=== PATIENT | female | born 1990 | race African-American/Black ===

== ENCOUNTER 2016-11-28 09:09 | Outpatient (CLI) | payer MEDICAID ==
[~2016-11-28 09:09] MED LIST: ACETAMINOPHEN 325 MG TABLET PO PRN; DIPHENHYDRAMINE HCL 50 MG/ML VIAL IV PRN; FERRIC CARBOXYMALTOSE 750 MG in NORMAL SALINE 250 ML IV PRN; NORMAL SALINE 250 ML IV PRN
[2016-11-28 10:36] VITALS: BP 127/70
== END 2016-11-28 10:15 | disposition home or self-care (01) ==
LOC: II 09:09 → 5TH 09:11 → II 10:00 → 5TH 10:00 → II 10:15
PROVIDERS: ATTEND Specialist
PROC: 3E033GC Introduction of Other Therapeutic Substance into Peripheral Vein, Percutaneous Approach (ICD-10-PCS; principal; 2016-11-28)
DX: D50.0 Iron deficiency anemia secondary to blood loss (chronic) (principal); K90.9 Intestinal malabsorption, unspecified
CPT/HCPCS: 96374; 96375; J3490; J1200; J7050; J1439; 96367

== ENCOUNTER 2016-12-09 10:07 | Outpatient (CLI) | payer MEDICAID ==
[2016-12-09 10:59] VITALS: BP 142/86
== END 2016-12-09 12:01 | disposition home or self-care (01) ==
LOC: II 10:07 → 5TH 10:10 → II 12:01
PROVIDERS: ATTEND Specialist
PROC: 3E033GC Introduction of Other Therapeutic Substance into Peripheral Vein, Percutaneous Approach (ICD-10-PCS; principal; 2016-12-09)
DX: D50.0 Iron deficiency anemia secondary to blood loss (chronic) (principal); K90.9 Intestinal malabsorption, unspecified
CPT/HCPCS: 96365; 96375; J3490; J1200; J7050; J1439

== ENCOUNTER 2017-04-18 21:43 | Emergency (ER) | payer SELFPAY ==
[2017-04-18 22:01] VITALS: BP 147/92
[2017-04-18] MEDS ORDERED: OXYMETAZOLINE HCL 0.05% NASAL SPRAY 15 ML BOTTLE NASL ONE (22:23)
--- NOTE | 2017-04-18 22:47 | ER Document Report ---
ED General - General Chief Complaint: Nose Bleed Stated Complaint: NOSE BLEEDS,CLOTS Time Seen by Provider: 04/18/17 22:23 Notes: Patient is a 26-year-old female without past medical history presents with intermittent nosebleed from the left nostril for the past 1 week. States that each day for small amount of time generally several minutes she has spotting from the left nostril which is able to be controlled with direct pressure. She states nothing seems to prompt his episodes of nosebleed. No history of similar symptoms in the past. She denies picking at the nose. She has not done that and try to treat her symptoms. She has not seen a primary care doctor regarding today's concerns. She denies any use of anticoagulation, over- the-counter NSAIDs or aspirin. TRAVEL OUTSIDE OF THE [place] IN LAST 30 DAYS: No - Related Data Allergies/Adverse Reactions: No Known Allergies Allergy (Verified 09/28/16 00:03) Past Medical History - General Information source: Patient - Social History Smoking Status: Never Smoker Chew tobacco use (# tins/day): No Frequency of alcohol use: None Drug Abuse: None Lives with: Spouse/Significant other Family History: Reviewed & Not Pertinent Renal/ Medical History: Denies: Hx Peritoneal Dialysis Surgical Hx: Negative - Immunizations Hx Diphtheria, Pertussis, Tetanus Vaccination: No Review of Systems - Review of Systems Notes: Constitutional: Negative for fever. HENT: Negative for sore throat. Eyes: Negative for visual changes. Cardiovascular: Negative for chest pain. Respiratory: Negative for shortness of breath. Gastrointestinal: Negative for abdominal pain, vomiting or diarrhea. Genitourinary: Negative for dysuria. Musculoskeletal: Negative for back pain. Skin: Negative for rash. Neurological: Negative for headaches, weakness or numbness. 10 point ROS negative except as marked above and in HPI. Physical Exam - Vital signs Vitals: Temp Pulse Resp BP Pulse Ox 98.6 F 90 16 147/92 H 99 04/18/17 21:58 04/18/17 21:58 04/18/17 21:58 04/18/17 21:58 04/18/17 21:58 Interpretation: Hypertensive Notes: PHYSICAL EXAMINATION: GENERAL: Well-appearing, well-nourished and in no acute distress. HEAD: Atraumatic, normocephalic. EYES: sclera anicteric, conjunctiva are normal. ENT: Moist mucous membranes. Mild excoriations to the septum on the left without any active bleeding NECK: Normal range of motion LUNGS: Normal work of breathing HEART: 2+ radial pulses bilaterally EXTREMITIES: no pitting or edema. No cyanosis. NEUROLOGICAL: No focal neurological deficits. Moves all extremities spontaneously and on command. PSYCH: Normal mood, normal affect. SKIN: Warm, Dry, normal turgor, no rashes or lesions noted. Course - Re-evaluation Re-evalutation: 04/18/17 22:46 Patient presents with intermittent nosebleeds from the left nostril for the past 1 week. No active bleeding at time of arrival. Vitals otherwise within normal limits. Patient is in no distress. There are several areas of excoriations along the left septum without active bleeding. I have recommended to the patient that she begin application of Vaseline or similar moisturizer to the septum twice daily and have given oxymetazoline for her to use should bleeding recur. At this time will discharge with return precautions and follow- up recommendations. Verbal discharge instructions given a the bedside and opportunity for questions given. Medication warnings reviewed. Patient is in agreement with this plan and has verbalized understanding of return precautions and the need for primary care follow-up in the next 24-72 hours. - Vital Signs Vital signs: Temp Pulse Resp BP Pulse Ox 98.6 F 90 16 147/92 H 99 04/18/17 21:58 04/18/17 21:58 04/18/17 21:58 04/18/17 21:58 04/18/17 21:58 Discharge - Discharge Clinical Impression: Recurrent epistaxis Condition: Good Disposition: HOME, SELF-CARE Additional Instructions: You were seen today for a nosebleed. If this restarts please apply direct pressure to the area for 15 minutes without releasing pressure. You can use 4- 5 sprays the Afrin (oxymetazoline) spray that was given to you here in the emergency room into the affected side prior to applying the pressure. You need to apply vasaline or a similar product along the inside of the side of the nose that is bleeding twice daily to help heal the inside of your nose. Please return to emergency department if these measures do not control the bleeding. Please also return if you pass out, have significant pain of the nose or face, or any other symptoms that are concerning to you. Your primary care doctor regarding today's visit.it. Referrals: DESTINY TERAN MD [Primary Care Provider] - Follow up as needed
== END 2017-04-18 22:52 | disposition home or self-care (01) ==
LOC: ER 21:43
DX: R04.0 Epistaxis (principal)
CPT/HCPCS: 99283; J3490

== ENCOUNTER → 2019-06-14 | Outpatient (CLI) | payer MEDICAID ==
[2019-06-14 11:33] LABS: BACTERIA (WET MOUNT) 4+ BACTERIA SEEN; EPITHELIALS (WET MOUNT) 4+ EPITHELIALS SEEN; RBCS (WET MOUNT) NO RBCS SEEN; T.VAGINALIS (WET MOUNT) NO TRICHOMONAS SEEN; WBCS (WET MOUNT) 3+ WBCS SEEN; YEAST (WET MOUNT) NO YEAST SEEN
[2019-06-14 13:06] LABS: CHLAM PCR NOT DETECTED (NOT DETECT)
== END ==
LOC: LAB 11:25
PROVIDERS: ATTEND Nurse Practitioner Family
DX: N89.8 Other specified noninflammatory disorders of vagina (principal); R30.0 Dysuria; R82.71 Bacteriuria
CPT/HCPCS: 87086; 87088; 87210; 87491; 87591

== ENCOUNTER → 2019-09-16 | Outpatient (CLI) | payer MEDICAID ==
--- NOTE | 2019-09-16 14:21 | RADIOLOGY REPORT (SQ) ---
EXAM DESCRIPTION: U/S THYROID/SFT TISS HD NECK COMPLETED DATE/TIME: 09/16/2019 9:07 am REASON FOR STUDY: THYROID ENLARGED E04.9 NONTOXIC GOITER, UNSPECIFIED COMPARISON: None. TECHNIQUE: Dynamic and static mcqueen-scale images acquired of the thyroid gland. Selected additional c olor/power Doppler images recorded. All images stored to PACS. LIMITATIONS: None. FINDINGS: RIGHT LOBE: The right lobe of the thyroid gland measures 4.6 x 1.7 x 2 cm and its echotext ure is heterogeneous. There is no discrete solid or cystic mass. LEFT LOBE: The left lobe of thyroid gland measures 4.1 x 1.8 x 2 cm and its echotexture is heterogene ous. There is no discrete solid or cystic mass. ISTHMUS: The isthmus of the thyroid gland measures 5 mm in AP diameter and its echotexture is heterog eneous. There is no discrete solid or cystic mass. OTHER: No other finding. IMPRESSION: Heterogeneous thyroid gland without a discrete nodular mass. The calculated volume of t he gland is within the normal limits of normal for an adult female (< than 18 cm^3). TECHNICAL DOCUMENTATION: JOB ID: [id number] [employer]- All Rights Reserved Reading location - IP/workstation name: [email or web address]
== END ==
LOC: RAD 08:51
PROVIDERS: ATTEND Nurse Practitioner Family
DX: E04.9 Nontoxic goiter, unspecified (principal)
CPT/HCPCS: 76536

== ENCOUNTER 2020-02-18 19:31 | Emergency (ER) | payer BC, MEDICAID ==
--- NOTE | 2020-02-18 19:47 | ER Document Report ---
ED Medical Screen (RME) - General Stated Complaint: CHEST PAIN,JAW TIGHTNESS AND LUMP IN THROAT Primary Care Provider: MOODY PLATA NP [Primary Care Provider] - Follow up as needed Notes: Patient is a 29-year-old -Swedish female with no significant past medi milo history who presents to the emergency department with a chief complaint of chest pain that began yesterday. She states it is a fairly constant pain in the right center chest. She reports that it radiates to the right jaw and neck. States it is pressure-like. No specific provocative or palliative factors. She denies any shortness of breath, cough, fever, injury, history of DVT or PE, recent travel or known sick contacts. I have treated and performed a rapid initial assessment of this patient. A comprehensive ED assessment and evaluation of the patient, analysis of test results and completion of medical decision making process will be conducted by additional ED providers. PHYSICAL EXAMINATION: GENERAL: Well-appearing, well-nourished and in no acute distress. A&Ox4. Answers questions appropriately. TRAVEL OUTSIDE OF THE [place] IN LAST 30 DAYS: No - Related Data Allergies/Adverse Reactions: No Known Allergies Allergy (Verified 09/28/16 00:03) Past Medical History Renal/ Medical History: Denies: Hx Peritoneal Dialysis - Immunizations Hx Diphtheria, Pertussis, Tetanus Vaccination: No Physical Exam - Vital signs Vitals: Temp Pulse Resp BP Pulse Ox 97.8 F 87 16 145/83 H 97 02/18/20 19:41 02/18/20 19:41 02/18/20 19:41 02/18/20 19:41 02/18/20 19:41 Course - Vital Signs Vital signs: Temp Pulse Resp BP Pulse Ox 97.8 F 87 16 145/83 H 97 02/18/20 19:41 02/18/20 19:41 02/18/20 19:41 02/18/20 19:41 02/18/20 19:41 Doctor's Discharge - Discharge Referrals: MOODY PLATA NP [Primary Care Provider] - Follow up as needed
--- NOTE | 2020-02-18 20:28 | RADIOLOGY REPORT (SQ) ---
CLINICAL INDICATION: cp. TECHNIQUE: PA and lateral views were obtained of the chest COMPARISON: None. FINDINGS: The cardiomediastinal silhouette is normal. The lungs are grossly clear. No evidence of effusion or pneumothorax. Visualized bones are unremarkable. . IMPRESSION: No evidence of active intrathoracic disease .
[2020-02-18 20:45] LABS: INTERNATIONAL RATION (INR) 1.06; PARTIAL THROMBOPLASTIN TIME 24.2 SEC (23.5-35.8); PROTHROMBIN TIME 13.8 SEC (11.4-15.4)
[2020-02-18 20:47] LABS: ABSOLUTE BASOPHILS # (AUTO) 0.1 10^3/uL (0.0-0.2); ABSOLUTE EOSINOPHILS # (AUTO) 0.5 10^3/uL (0.0-0.6); ABSOLUTE LYMPHOCYTES (AUTO) 4.7 10^3/uL (0.5-4.7); ABSOLUTE MONOCYTES (AUTO) 0.8 10^3/uL (0.1-1.4); ABSOLUTE NEUT (AUTO) 6.8 10^3/uL (1.7-8.2); BASOPHILS % (AUTO) 0.5 % (0-2); EOSINOPHILS % (AUTO) 3.6 % (0-6); HEMATOCRIT 38.3 % (36.0-47.0); HEMOGLOBIN 12.6 g/dL (12.0-15.5); LYMPHOCYTES % (AUTO) 36.5 % (13-45); MEAN CORPUSCULAR HEMOGLOBIN 27.8 pg (27.0-33.4); MEAN CORPUSCULAR HGB CONC 32.9 g/dL (32.0-36.0); MEAN CORPUSCULAR VOLUME 85 fl (80-97); RED BLOOD COUNT 4.53 10^6/uL (3.72-5.28); RED CELL DISTRIBUTION WIDTH 14.9 % (11.5-14.0); SEGMENTED NEUTROPHILS % (AUTO) 53.4 % (42-78); TOTAL CELLS COUNTED % (AUTO) 100 %; WHITE BLOOD COUNT 12.7 10^3/uL (4.0-10.5)
[2020-02-18 21:02] LABS: PLATELET COUNT 355 10^3/uL (150-450)
--- NOTE | 2020-02-18 21:18 | EKG REPORT ---
SEVERITY:- NORMAL ECG - SINUS RHYTHM : Confirmed by: Fabien Escobar MD 18-Feb-2020 21:17:33
[2020-02-18 21:40] LABS: ALBUMIN 3.9 g/dL (3.5-5.0); ALKALINE PHOSPHATASE 115 U/L (38-126); ANION GAP 8 (5-19); ASPARTATE AMINO TRANSFERASE 33 U/L (14-36); BILIRUBIN,DIRECT 0.3 mg/dL (0.0-0.4); BILIRUBIN,TOTAL 0.6 mg/dL (0.2-1.3); BLOOD UREA NITROGEN 11 mg/dL (7-20); CALCIUM 8.7 mg/dL (8.4-10.2); CARBON DIOXIDE 23 mmol/L (22-30); CHLORIDE 104 mmol/L (98-107); GLUCOSE 90 mg/dL (75-110); POTASSIUM 4.1 mmol/L (3.6-5.0); TOTAL PROTEIN 8.1 g/dL (6.3-8.2)
--- NOTE | 2020-02-18 22:25 | ER Document Report ---
ED General - General Chief Complaint: Chest Pain Stated Complaint: CHEST PAIN,JAW TIGHTNESS AND LUMP IN THROAT Time Seen by Provider: 02/18/20 21:21 Primary Care Provider: MOODY PLATA NP [Primary Care Provider] - Follow up as needed TRAVEL OUTSIDE OF THE [place] IN LAST 30 DAYS: No - HPI Notes: Patient is a 29-year-old female who presents emergency department for evaluation of chest pain. It started on for a few hours, then she got it again this evening. She states the first time she was at rest, the second time she was outside playing with her children. She states that neither were during strenuous activities. She described a burning and sharp pain in the center of her chest. She states she had intermittent pain in her right neck, as well as a funny tingling sensation in her right jaw. She denied any associated nausea, diaphoresis, shortness of breath, or near syncope. - Related Data Allergies/Adverse Reactions: No Known Allergies Allergy (Verified 09/28/16 00:03) Past Medical History - General Information source: Patient - Social History Smoking Status: Never Smoker Family History: Reviewed & Not Pertinent Patient has suicidal ideation: No Patient has homicidal ideation: No Renal/ Medical History: Denies: Hx Peritoneal Dialysis Past Surgical History: Reports: Hx Section - Immunizations Hx Diphtheria, Pertussis, Tetanus Vaccination: No Review of Systems - Review of Systems Cardiovascular: See HPI Musculoskeletal: See HPI -: Yes All other systems reviewed and negative Physical Exam - Vital signs Vitals: Temp Pulse Resp BP Pulse Ox 97.8 F 87 16 145/83 H 97 02/18/20 19:41 02/18/20 19:41 02/18/20 19:41 02/18/20 19:41 02/18/20 19:41 - Notes Notes: Vital signs reviewed, please refer to chart. Head is normocephalic, atraumatic. Pupils equal round, reactive to light. Neck is supple without meningismus. Heart is regular rate and rhythm. Lungs are clear to auscultation bilaterally. Abdomen is soft, nontender, normoactive bowel sounds throughout. Extremities without cyanosis, clubbing. Posterior calves are nontender. Peripheral pulses are equal. Skin is warm and dry. Patient is awake, alert, neurological exam is nonfocal. Course - Re-evaluation Re-evalutation: 02/18/20 22:22 Patient presents emergency department for evaluation. She had labs ordered, EKG performed. Laboratory investigations failed to reveal any significant abnormality. EKG is unremarkable. Patient is obese, but has no other significant risk factors for coronary artery disease. We talked at length about the differential diagnosis for chest pain, and I believe we have ruled out any more serious process at this time based on her current presentation. She did talk about the fact that her blood pressure has been mildly elevated at another appointment as well as here today. We talked at length about blood pressure management, lifestyle changes, and the risks associated with prolonged high blood pressure. She voiced understanding to this and will follow-up regarding this issue with her primary care provider next week. Otherwise she is to return to the ER with worsening or new concerning symptoms of any sort. - Vital Signs Vital signs: Temp Pulse Resp BP Pulse Ox 98.3 F 87 15 122/79 99 02/18/20 23:02 02/18/20 19:41 02/18/20 22:02 02/18/20 22:02 02/18/20 22:02 - Laboratory Result Diagrams: 02/18/20 20:22 02/18/20 21:00 Laboratory results interpreted by me: 02/18/20 02/18/20 20:22 21:00 WBC 12.7 H RDW 14.9 H Sodium 135.3 L - Diagnostic Test Radiology reviewed: Reports reviewed Radiology results interpreted by me: 02/18/20 22:24 Chest X-Ray 02/18/20 19:46 IMPRESSION: No evidence of active intrathoracic disease . - EKG Interpretation by Me Additional EKG results interpreted by me: 02/18/20 22:24 Sinus mechanism with a rate of 92 bpm. Normal axis and intervals. No acute ST changes concerning for ischemia or infarction. Discharge - Discharge Clinical Impression: Chest pain Qualifiers: Chest pain type: unspecified Qualified Code(s): R07.9 - Chest pain, unspecified Condition: Stable Disposition: HOME, SELF-CARE Instructions: Chest Pain of Unclear Cause ([facility]) Additional Instructions: No clear cause was found for your chest pain today. Your blood work, EKG, chest x-ray were unremarkable. Please follow-up with your primary care provider. Please keep an eye on your blood pressure as discussed as well. If you develop increased pain, or worsening or new concerning symptoms of any sort, please return immediately to the emergency department for evaluation. Referrals: MOODY PLATA NP [Primary Care Provider] - Follow up as needed
[2020-02-18 22:39] VITALS: BP 122/79
== END 2020-02-18 23:02 | disposition home or self-care (01) ==
LOC: ER 19:31
DX: R07.9 Chest pain, unspecified (principal); R68.84 Jaw pain
CPT/HCPCS: 36415; 71046; 80053; 84484; 84703; 85025; 85610; 85730; 93005; 93010; 99285

== ENCOUNTER 2020-07-08 19:09 | Emergency (ER) | payer BC, MEDICAID ==
--- NOTE | 2020-07-08 21:45 | ER Document Report ---
ED Medical Screen (RME) - General Chief Complaint: Back Pain Stated Complaint: BACK PAIN Time Seen by Provider: 07/08/20 21:40 Primary Care Provider: MOODY PLATA NP [Primary Care Provider] - Follow up as needed Mode of Arrival: Ambulatory Information source: Patient Notes: 30-year-old female presents to ED for complaint of pain in her lower back that goes to the top of her back for the last 2 weeks. She states when she lays down it feels like there is a ball that goes from her lower back up to her top of her back to her right shoulder. She denies any recent injuries. States she is always had random back pains because she is worked on her feet. This menstrual cycle June 18. She denies smoking drinking using any illicit drugs. She does not take any regular medicines and she has no prior medical history. She states she has had a . Is alert and oriented respirations regular nonlabored answering all questions appropriately. We will get urine test for and if that is negative we will get a back x-ray and she will be seen by another doctor. I have greeted and performed a rapid initial assessment of this patient. A comprehensive ED assessment and evaluation of the patient, analysis of test results and completion of medical decision making process will be conducted by an additional ED providers. TRAVEL OUTSIDE OF THE [place] IN LAST 30 DAYS: No - Related Data Allergies/Adverse Reactions: No Known Allergies Allergy (Verified 09/28/16 00:03) Past Medical History Renal/ Medical History: Denies: Hx Peritoneal Dialysis Past Surgical History: Reports: Hx Section - Immunizations Hx Diphtheria, Pertussis, Tetanus Vaccination: No Physical Exam - Vital signs Vitals: Temp Pulse Resp BP Pulse Ox 98.3 F 91 18 146/87 H 100 07/08/20 20:14 07/08/20 20:14 07/08/20 20:14 07/08/20 20:14 07/08/20 20:14 Course - Vital Signs Vital signs: Temp Pulse Resp BP Pulse Ox 98.3 F 91 18 146/87 H 100 07/08/20 20:14 07/08/20 20:14 07/08/20 20:14 07/08/20 20:14 07/08/20 20:14 Doctor's Discharge - Discharge Referrals: WITTLER,MOODY, RISK CONTROL OFFICER [Primary Care Provider] - Follow up as needed
--- NOTE | 2020-07-08 23:07 | RADIOLOGY REPORT (SQ) ---
INDICATION: Low back pain wait for test. TECHNIQUE: 5 view(s) of the lumbar spine. Both obliques COMPARISON: None FINDINGS: No evidence of acute displaced fracture. Alignment is anatomic. The facets and intervertebral joints are within normal limits for age. Vertebral body heights are well-maintained. Surrounding soft tissues are unremarkable. IMPRESSION: No evidence of acute displaced fracture of the lumbar spine.
--- NOTE | 2020-07-08 23:35 | ER Document Report ---
ED Neck/Back Problem - General Chief Complaint: Back Pain Stated Complaint: BACK PAIN Time Seen by Provider: 07/08/20 21:40 Primary Care Provider: MOODY PLATA NP [Primary Care Provider] - Follow up as needed Mode of Arrival: Ambulatory Notes: CHIEF COMPLAINT: Right trapezius discomfort HPI: 30-year-old obese female presenting for right trapezius discomfort intermittent over the last week. Patient recently started working out where she is trying to do more stretching and feels like something may have pulled in the back. Denies shortness of breath or chest pain. Denies . Is not on control. Has taken no medications for her symptoms. Discomfort specifically worsens with certain stretches or movements of the right shoulder or upper arm. Patient states occasionally she will feel like a spasm builds in the lower back and then radiates up to the right shoulder region. ROS: See HPI - all other systems were reviewed and are otherwise negative Constitutional: no fever Cardiovascular: no chest pain Resp: no SOB, no cough GI: no vomiting, no diarrhea, no abdominal pain : no dysuria Integumentary: no rash Allergy: no hives Musculoskeletal: Positive back pain Neurological: no numbness/tingling, no weakness MEDICATIONS: I agree with the patient medications as charted by the RN. ALLERGIES: I agree with the allergies as charted by the RN. PAST MEDICAL HISTORY/PAST SURGICAL HISTORY: Reviewed and agree as charted by RN. SOCIAL HISTORY: Reviewed and agree as charted by RN. FAMILY HISTORY: No significant familial comorbid conditions directly related to patient complaint EXAM: Reviewed vital signs as charted by RN. CONSTITUTIONAL: Alert and oriented and responds appropriately to questions. Well-appearing; well-nourished HEAD: Normocephalic; atraumatic EYES: Conjunctivae clear, sclerae non-icteric ENT: normal nose; no rhinorrhea; moist mucous membranes NECK: Supple without meningismus; non-tender; no cervical lymphadenopathy, no masses CARD: RRR; no murmurs, no clicks, no rubs, no gallops; symmetric distal pulses RESP: Normal chest excursion without splinting or tachypnea; breath sounds clear and equal bilaterally; no wheezes, no rhonchi, no rales, pulse oximetry 99% on room air not hypoxic ABD/GI: Normal bowel sounds; non-distended; soft, non-tender, no rebound, no guarding; no palpable organomegaly or masses. BACK: The back appears normal and is non-tender to palpation over the thoracic and lumbar spine, there is no CVA tenderness. There is tenderness on palpation of the right trapezius region EXT: Normal ROM in all joints; non-tender to palpation; no cyanosis, no effusions, no edema SKIN: Normal color for age and race; warm; dry; good turgor; no acute lesions noted NEURO: Moves all extremities equally; Motor and sensory function intact PSYCH: The patient's mood and manner are appropriate. Grooming and personal hygiene are appropriate. MDM: 30-year-old female presenting with what is likely a trapezius strain. Ini tial imaging studies by triage process did not show acute findings in the lumbar spine. Patient's pain really appears to be in the right trapezius region. Will place her on an anti-inflammatory and a muscle relaxer refer to orthopedics follow-up. Low suspicion for pulmonary embolus as she is not and not on control. Not tachycardic or tachypneic. PERC negative TRAVEL OUTSIDE OF THE [place] IN LAST 30 DAYS: No - Related Data Allergies/Adverse Reactions: No Known Allergies Allergy (Verified 09/28/16 00:03) Past Medical History - General Information source: Patient - Social History Smoking Status: Never Smoker Chew tobacco use (# tins/day): No Frequency of alcohol use: None Drug Abuse: None Family History: Reviewed & Not Pertinent Patient has homicidal ideation: No Renal/ Medical History: Denies: Hx Peritoneal Dialysis Past Surgical History: Reports: Hx Section - Immunizations Hx Diphtheria, Pertussis, Tetanus Vaccination: No Physical Exam - Vital signs Vitals: Temp Pulse Resp BP Pulse Ox 98.3 F 91 18 146/87 H 100 07/08/20 20:14 07/08/20 20:14 07/08/20 20:14 07/08/20 20:14 07/08/20 20:14 Course - Vital Signs Vital signs: Temp Pulse Resp BP Pulse Ox 98.3 F 91 18 146/87 H 100 07/08/20 20:14 07/08/20 20:14 07/08/20 20:14 07/08/20 20:14 07/08/20 20:14 Discharge - Discharge Clinical Impression: Trapezius strain Qualifiers: Encounter type: initial encounter Laterality: right Qualified Code(s): S46.811A - Strain of other muscles, fascia and tendons at shoulder and upper arm level, right arm, initial encounter Condition: Stable Disposition: HOME, SELF-CARE Additional Instructions: Warm heat to the right trapezius region 2-3 times a day. Take the muscle relaxers and anti-inflammatories as prescribed no driving if taking muscle relaxers. Follow-up closely with primary care provider or orthopedics for further evaluation and treatment call for appointment Prescriptions: Cyclobenzaprine HCl [Flexeril 10 mg Tablet] 10 mg PO TIDP PRN #15 tab PRN Reason: Diclofenac Sodium [Voltaren 50 Mg Tablet.] 50 mg PO BID #20 tablet. Referrals: MOODY PLATA NP [Primary Care Provider] - Follow up as needed CHRIS PINEDA DO [ACTIVE STAFF] - Follow up as needed
[2020-07-09 00:06] VITALS: BP 135/88
== END 2020-07-09 00:07 | disposition home or self-care (01) ==
LOC: ER 19:09
DX: S46.811A Strain of other muscles, fascia and tendons at shoulder and upper arm level, right arm, initial encounter (principal); M54.9 Dorsalgia, unspecified; M54.6 Pain in thoracic spine; M25.511 Pain in right shoulder; M54.5 Low back pain; M62.830 Muscle spasm of back; X58.XXXA Exposure to other specified factors, initial encounter
CPT/HCPCS: 72110; 81025; 99284

== ENCOUNTER 2020-07-31 12:46 | Emergency (ER) | payer MEDICAID ==
--- NOTE | 2020-07-31 13:02 | ER Document Report ---
ED Medical Screen (RME) - General Chief Complaint: Chest Pain > 30 Stated Complaint: CHEST PAIN Time Seen by Provider: 07/31/20 12:56 Primary Care Provider: MOODY PLATA NP [Primary Care Provider] - Follow up as needed Mode of Arrival: Ambulatory Information source: Patient Notes: 30-year-old female presented to ED for complaint of chest pain that started on Thursday. She states it went away on Thursday came back on Thursday with any movement at all. She states she has no pain if she sits perfectly still but if she moves to the right the pain gets pretty bad. She states that she has been in here before they told her was all indigestion or muscle strain. She states she has not lifted anything has not done anything to cause any pain but she has pretty severe pain when she moves to the right. She does not have any past medical history she does not smoke drink or use any illicit drugs. Patient is alert oriented respirations regular nonlabored speaking in full sentences. I have greeted and performed a rapid initial assessment of this patient. A comprehensive ED assessment and evaluation of the patient, analysis of test results and completion of medical decision making process will be conducted by an additional ED providers. TRAVEL OUTSIDE OF THE [place] IN LAST 30 DAYS: No - Related Data Allergies/Adverse Reactions: No Known Allergies Allergy (Verified 09/28/16 00:03) Past Medical History Renal/ Medical History: Denies: Hx Peritoneal Dialysis Past Surgical History: Reports: Hx Section - Immunizations Hx Diphtheria, Pertussis, Tetanus Vaccination: No Physical Exam - Vital signs Vitals: Temp Pulse Resp BP Pulse Ox 99.0 F 86 18 140/81 H 100 07/31/20 12:52 07/31/20 12:52 07/31/20 12:52 07/31/20 12:52 07/31/20 12:52 Course - Vital Signs Vital signs: Temp Pulse Resp BP Pulse Ox 99.0 F 86 18 140/81 H 100 07/31/20 12:52 07/31/20 12:52 07/31/20 12:52 07/31/20 12:52 07/31/20 12:52 Doctor's Discharge - Discharge Referrals: MOODY PLATA NP [Primary Care Provider] - Follow up as needed
--- NOTE | 2020-07-31 13:42 | RADIOLOGY REPORT (SQ) ---
EXAM DESCRIPTION: CHEST 2 VIEWS IMAGES COMPLETED DATE/TIME: 07/31/2020 1:34 pm REASON FOR STUDY: Chest pain center of the chest COMPARISON: 02/18/2020 EXAM PARAMETERS: NUMBER OF VIEWS: two views TECHNIQUE: Digital Frontal and Lateral radiographic views of the chest acquired. RADIATION DOSE: NA LIMITATIONS: none FINDINGS: LUNGS AND PLEURA: No opacities, masses or pneumothorax. No pleural effusion. MEDIASTINUM AND HILAR STRUCTURES: No masses or contour abnormalities. HEART AND VASCULAR STRUCTURES: Heart normal size. No evidence for failure. BONES: No acute findings. HARDWARE: None in the chest. OTHER: No other significant finding. IMPRESSION: NO ACUTE RADIOGRAPHIC FINDING IN THE CHEST. TECHNICAL DOCUMENTATION: JOB ID: [id number] 2010 [employer]- All Rights Reserved Reading location - IP/workstation name: [email or web address]
[2020-07-31 13:45] LABS: ABSOLUTE BASOPHILS # (AUTO) 0.1 10^3/uL (0.0-0.2); ABSOLUTE EOSINOPHILS # (AUTO) 0.3 10^3/uL (0.0-0.6); ABSOLUTE MONOCYTES (AUTO) 0.5 10^3/uL (0.1-1.4); ABSOLUTE NEUT (AUTO) 4.8 10^3/uL (1.7-8.2); BASOPHILS % (AUTO) 0.6 % (0-2); EOSINOPHILS % (AUTO) 3.7 % (0-6); HEMATOCRIT 35.8 % (36.0-47.0); HEMOGLOBIN 11.9 g/dL (12.0-15.5); LYMPHOCYTES % (AUTO) 34.6 % (13-45); MEAN CORPUSCULAR HEMOGLOBIN 27.3 pg (27.0-33.4); MEAN CORPUSCULAR HGB CONC 33.3 g/dL (32.0-36.0); MEAN CORPUSCULAR VOLUME 82 fl (80-97); PLATELET COUNT 500 10^3/uL (150-450); RED BLOOD COUNT 4.37 10^6/uL (3.72-5.28); RED CELL DISTRIBUTION WIDTH 15.5 % (11.5-14.0); SEGMENTED NEUTROPHILS % (AUTO) 55.1 % (42-78); TOTAL CELLS COUNTED % (AUTO) 100 %; WHITE BLOOD COUNT 8.7 10^3/uL (4.0-10.5)
[2020-07-31 14:07] LABS: ALKALINE PHOSPHATASE 136 U/L (38-126); ANION GAP 10 (5-19); ASPARTATE AMINO TRANSFERASE 22 U/L (14-36); BILIRUBIN,DIRECT 0.3 mg/dL (0.0-0.4); BILIRUBIN,TOTAL 0.7 mg/dL (0.2-1.3); BLOOD UREA NITROGEN 7 mg/dL (7-20); CALCIUM 9.2 mg/dL (8.4-10.2); CARBON DIOXIDE 25 mmol/L (22-30); CHLORIDE 105 mmol/L (98-107); CREATINE KINASE 112 U/L (30-135); GLUCOSE 87 mg/dL (75-110); TOTAL PROTEIN 7.4 g/dL (6.3-8.2)
[2020-07-31] MEDS ORDERED: KETOROLAC TROMETHAMINE INJ/PF 30 MG/1 ML SDV IV ONE (14:51)
[2020-07-31] MEDS ORDERED: MAG HYDROX/AL HYDROX/SIMETH SUSP 30 ML UDCUP PO ONE (14:52)
[2020-07-31] MEDS ORDERED: LIDOCAINE 2% VISCOUS SOLN 15 ML UDCUP PO ONE (14:52)
--- NOTE | 2020-07-31 14:53 | ER Document Report ---
ED Cardiac - General Chief Complaint: Chest Pain > 30 Stated Complaint: CHEST PAIN Time Seen by Provider: 07/31/20 12:56 Primary Care Provider: ZIA MCLAIN MD [ACTIVE STAFF] - Follow up as needed MOODY PLATA NP [Primary Care Provider] - Follow up as needed Mode of Arrival: Ambulatory Information source: Patient Notes: Patient presents with a 3-day history of midsternal chest discomfort that flares up with movement. Patient states pain worsens whenever she moves her torso where she takes a deep inspiration. Patient denies any cough or shortness of breath. Patient denies any nausea, or diarrhea. Patient denies any history of acid reflux, any history of trauma or anxiety. Patient denies any previous PE or DVT. TRAVEL OUTSIDE OF THE [place] IN LAST 30 DAYS: No - HPI Patient complains to provider of: Chest pain. denies: Shortness of breath Is the pain a: New problem Chest pain location: Substernal Quality of pain: Achy Severity now: None Pain level currently: 4 Chest pain precipitating factors: Physical Exertion Cardiac risk factors: None Associated symptoms: denies: Abdominal pain, Fatigue, Lightheaded, Nausea/vomiting, Neck pain Exacerbated by: Deep breaths, Torso movement Relieved by: Rest Similar symptoms previously: No Recently seen / treated by doctor: No - Related Data Allergies/Adverse Reactions: No Known Allergies Allergy (Verified 09/28/16 00:03) Past Medical History - General Information source: Patient - Social History Smoking Status: Never Smoker Chew tobacco use (# tins/day): No Frequency of alcohol use: None Drug Abuse: None Occupation: Works from home Family History: None - Medical History Medical History: Negative Renal/ Medical History: Denies: Hx Peritoneal Dialysis Past Surgical History: Reports: Hx Section - Immunizations Hx Diphtheria, Pertussis, Tetanus Vaccination: No Review of Systems - Review of Systems Constitutional: No symptoms reported. denies: Fever EENT: No symptoms reported Cardiovascular: Chest pain. denies: Dizziness, Lightheaded Respiratory: Hurts to breathe. denies: Cough, Short of breath Gastrointestinal: No symptoms reported. denies: Abdominal pain, Diarrhea, Nausea, Vomiting Genitourinary: No symptoms reported Female Genitourinary: No symptoms reported Musculoskeletal: No symptoms reported. denies: Back pain, Leg swelling Skin: No symptoms reported Hematologic/Lymphatic: No symptoms reported Neurological/Psychological: No symptoms reported Physical Exam - Vital signs Vitals: Temp Pulse Resp BP Pulse Ox 99.0 F 86 18 140/81 H 100 07/31/20 12:52 07/31/20 12:52 07/31/20 12:52 07/31/20 12:52 07/31/20 12:52 - Notes Notes: PHYSICAL EXAMINATION: GENERAL: Well-appearing and in no acute distress. HEAD: Atraumatic, normocephalic. EYES: Pupils equal round and reactive to light, extraocular movements intact, sclera anicteric, conjunctiva are normal. ENT: nares patent, oropharynx clear without exudates. Moist mucous membranes. NECK: Normal range of motion, supple without lymphadenopathy LUNGS: Anterior chest wall tenderness reproducible with palpation or movement of the trunk, CTAB and equal. No wheezes rales or rhonchi. HEART: Regular rate and rhythm without murmurs ABDOMEN: Soft, no tenderness. No guarding, no rebound EXTREMITIES: Normal range of motion, no pitting edema. BACK: No midline tenderness, no step-off or deformity. NEUROLOGICAL: Cranial nerves grossly intact. Normal speech. PSYCH: Normal mood, normal affect. SKIN: Warm, Dry, normal turgor, no rashes or lesions noted Course - Re-evaluation Re-evalutation: 07/31/20 15:33 Presentation of chest pain in an otherwise well appearing patient. Low clinical suspicion for ACS given clinical history, exam, EKG without ST elevations or depressions, and negative initial troponin. HEART score less than or equal to 3. PE also seems unlikely given clinical history, absence of tachycardia or dyspnea. Patient with negative d-dimer. CXR without evidence of pneumothorax or pneumonia. No widened mediastinum. Chest pain in a patient without evidence of cardiac or other serious etiology on workup today. I discussed with patient that, based on their age, risk factors and emergency department testing today, the likelihood that their symptoms are related to a heart attack is very low. The patient demonstrates decision making capacity and has verbalized an understanding of these risks to me. Based on thi s, the patient has chosen to follow-up as an outpatient. Usual chest pain return precautions reviewed. The patient states understanding and agreement with this plan. - Vital Signs Vital signs: Temp Pulse Resp BP Pulse Ox 98.7 F 72 18 138/70 H 98 07/31/20 16:02 07/31/20 16:02 07/31/20 16:02 07/31/20 16:02 07/31/20 16:02 - Laboratory Result Diagrams: 07/31/20 13:15 07/31/20 13:15 Laboratory results interpreted by me: 07/31/20 07/31/20 13:15 13:15 Hgb 11.9 L Hct 35.8 L RDW 15.5 H Plt Count 500 H Alkaline Phosphatase 136 H 07/31/20 15:34 Labs- All tests 24 hr 07/31/20 07/31/20 07/31/20 13:15 13:15 13:15 WBC 8.7 RBC 4.37 Hgb 11.9 L Hct 35.8 L MCV 82 MCH 27.3 MCHC 33.3 RDW 15.5 H Plt Count 500 H Lymph % (Auto) 34.6 Powell % (Auto) 6.0 Eos % (Auto) 3.7 Baso % (Auto) 0.6 Absolute Neuts (auto) 4.8 Absolute Lymphs (auto) 3.0 Absolute Monos (auto) 0.5 Absolute Eos (auto) 0.3 Absolute Basos (auto) 0.1 Seg Neutrophils % 55.1 D-Dimer Sodium 139.7 Potassium 4.0 Chloride 105 Carbon Dioxide 25 Anion Gap 10 BUN 7 Creatinine 0.63 Est GFR ( Amer) > 60 Est GFR (MDRD) Non-Af > 60 Glucose 87 Calcium 9.2 Magnesium 2.1 Total Bilirubin 0.7 Direct Bilirubin 0.3 Neonat Total Bilirubin Not Reportable Neonat Direct Bilirubin Not Reportable Neonat Indirect Bili Not Reportable AST 22 ALT 15 Alkaline Phosphatase 136 H Creatine Kinase 112 Troponin I < 0.012 Total Protein 7.4 Albumin 4.0 07/31/20 13:15 WBC RBC Hgb Hct MCV MCH MCHC RDW Plt Count Lymph % (Auto) Powell % (Auto) Eos % (Auto) Baso % (Auto) Absolute Neuts (auto) Absolute Lymphs (auto) Absolute Monos (auto) Absolute Eos (auto) Absolute Basos (auto) Seg Neutrophils % D-Dimer 0.31 Sodium Potassium Chloride Carbon Dioxide Anion Gap BUN Creatinine Est GFR ( Amer) Est GFR (MDRD) Non-Af Glucose Calcium Magnesium Total Bilirubin Direct Bilirubin Neonat Total Bilirubin Neonat Direct Bilirubin Neonat Indirect Bili AST ALT Alkaline Phosphatase Creatine Kinase Troponin I Total Protein Albumin - Diagnostic Test Radiology reviewed: Image reviewed, Reports reviewed - EKG Interpretation by Me EKG shows normal: Sinus rhythm Rate: Normal Rhythm: NSR When compared to previous EKG there are: No significant change Additional EKG results interpreted by me: 07/31/20 15:35 Sinus rhythm with a rate of 78, QTc 433, no acute ischemic changes, no significant changes when compared to prior EKG Discharge - Discharge Clinical Impression: Chest wall pain Condition: Stable Disposition: HOME, SELF-CARE Instructions: Anti-Inflammatory Medication ([facility]), Chest Wall Pain ([facility]) Additional Instructions: Return immediately for any new or worsening symptoms Followup with your primary care provider, call tomorrow to make a followup appoi ntment You were seen today for chest pain. The exact cause of your pain is unclear. However, based on your cardiac enzyme testing, chest x-ray, and EKG it does not appear that it is from an immediately life-threatening cause at this time. Although your testing here is normal is critical that you follow-up with your primary care physician for continued evaluation of this chest pain and possible stress testing. I recommended you see your physician within the next 24-48 hours to be evaluated for consideration of a stress test. Please return to emergency department immediately if you have worsening of your chest pain, shortness of breath, vomiting, become unable to exert yourself due to pain or difficulty breathing, you pass out, or have any pain that radiates into your arms, jaw, or back. Please also return if you have any additional symptoms that are concerning to you. Prescriptions: Cyclobenzaprine HCl [Flexeril 10 Mg Tablet] 10 mg PO TID #15 tablet Naproxen [Naprosyn 250 Nmg Tablet] 1 tab PO BID #14 tablet Referrals: MOODY PLATA NP [Primary Care Provider] - Follow up as needed ZIA MCLAIN MD [ACTIVE STAFF] - Follow up as needed
[2020-07-31 16:04] VITALS: BP 138/70
--- NOTE | 2020-08-01 09:39 | EKG REPORT ---
SEVERITY:- NORMAL ECG - SINUS RHYTHM : Confirmed by: Juan David Villasenor MD 01-Aug-2020 09:38:31
== END 2020-07-31 16:13 | disposition home or self-care (01) ==
LOC: ER 12:46
DX: R07.89 Other chest pain (principal); R07.1 Chest pain on breathing
CPT/HCPCS: 93005; 99285; 96374; 36415; 82550; 83735; 85025; 80053; 84484; 85379; 71046; 93010; J3490 ×2; J1885

== ENCOUNTER → 2020-08-20 | Outpatient (CLI) | payer MEDICAID ==
--- NOTE | 2020-08-20 17:03 | RADIOLOGY REPORT (SQ) ---
EXAM DESCRIPTION: LUMBAR SPINE COMPLETE IMAGES COMPLETED DATE/TIME: 08/20/2020 4:39 pm REASON FOR STUDY: LOW BACK PAIN M54.5 LOW BACK PAIN COMPARISON: None. NUMBER OF VIEWS: Five views including obliques. TECHNIQUE: AP, lateral, oblique, and sacral radiographic images acquired of the lumbar spine. LIMITATIONS: None. FINDINGS: MINERALIZATION: Normal. SEGMENTATION: Normal. No transitional anatomy. ALIGNMENT: Normal. VERTEBRAE: Maintained height. No fracture or worrisome bone lesion. DISCS: Preserved height. No significant osteophytes or end plate irregularity. POSTERIOR ELEMENTS: Pedicles and facets are intact. No pars defect or posterior arch defects. HARDWARE: None in the spine. PARASPINAL SOFT TISSUES: Normal. PELVIS: Intact as visualized. No fractures or worrisome bone lesions. SI joints intact. OTHER: No other significant finding. IMPRESSION: NORMAL 5 VIEW LUMBAR SPINE. TECHNICAL DOCUMENTATION: JOB ID: [id number] 2010 [employer]- All Rights Reserved Reading location - IP/workstation name: [email or web address]
== END ==
LOC: OD 16:20
PROVIDERS: ATTEND Nurse Practitioner Family
DX: M54.5 Low back pain (principal)
CPT/HCPCS: 72110